=== PATIENT | female | born 1975 | race Caucasian/White ===

== ENCOUNTER → 2017-03-21 | Outpatient (REF) | payer OTHER | LOC: M LAB REF 14:46 | PROVIDERS: ATTEND Family Medicine | DX: Z12.4 Encounter for screening for malignant neoplasm of cervix (principal) ==

== ENCOUNTER 2018-10-29 01:27 | Emergency (ER) | payer OTHER ==
[~2018-10-29] VITALS: Ht 172.7 cm; Wt 100.0 kg
[2018-10-29] MEDS ORDERED: SYNT88TA2 PO (01:31)
[2018-10-29 02:40] VITALS: BP 130/70
== END 2018-10-29 02:45 | disposition home or self-care (01) ==
LOC: M ED 01:27
DX: J70.5 Respiratory conditions due to smoke inhalation (principal); E03.9 Hypothyroidism, unspecified; Z88.2 Allergy status to sulfonamides; Z79.899 Other long term (current) drug therapy

== ENCOUNTER → 2021-01-15 | Outpatient (CLI) | payer OTHER ==
[~2021-01-15] MED LIST: SYNT88TA2 PO
--- NOTE | 2021-01-17 06:57 | REP ---
INDICATION: PAIN. COMPARISON: None. TECHNIQUE: AP, lateral, bilateral oblique views of the right elbow. FINDINGS: Small corticated densities adjacent to the humeral condyles suggests elements of calcific tendinopathy. The radiohumeral and ulnohumeral joint spaces appear intact and normal. No further degenerative changes are identified. No evidence for acute or healed injury. No effusion. IMPRESSION: Mild calcific tendinopathy suspected. <Electronically signed by Kalen Ma > 01/17/21 [id number]
== END ==
LOC: M SOG 13:52
PROVIDERS: ATTEND Orthopaedic Surgery Sports Medicine
DX: M65.28 Calcific tendinitis, other site (principal)

== ENCOUNTER → 2022-02-25 | Outpatient (CLI) | payer OTHER | LOC: M SOG 08:15 | PROVIDERS: ATTEND Orthopaedic Surgery Hand Surgery | DX: M25.521 Pain in right elbow (principal) ==

== ENCOUNTER 2022-05-27 21:56 | Emergency (ER) | payer OTHER ==
[~2022-05-27] VITALS: Ht 172.7 cm; Wt 105.9 kg
[~2022-05-27 21:56] MED LIST changes: -KETO10TAB PO
[2022-05-28 01:40] LABS: BASO # 0.1 10^3/uL (0.0-0.2); BASO % 0.6 % (0.0-1.0); EOS # 0.3 10^3/uL (0.0-0.5); EOS % 3.2 % (0.0-3.0); HEMATOCRIT 40.9 % (36.0-47.0); HEMOGLOBIN 13.5 g/dl (12.0-15.5); LYMPH # 2.4 10^3/uL (1.5-5.0); LYMPH % 27.1 % (24.0-44.0); MEAN CORPUSCULAR HEMOGLOBIN 29.2 pg (27.0-33.0); MEAN CORPUSCULAR VOLUME 88.5 fl (80.0-96.0); MONO # 0.6 10^3/uL (0.0-0.8); MONO % 6.4 % (2.0-8.0); NEUTROPHILS # 5.4 10^3/uL (1.5-8.5); NEUTROPHILS % 62.2 % (36.0-66.0); PLATELET COUNT, AUTOMATED 236 10^3/uL (150-450); RED BLOOD COUNT 4.62 10^6/uL (4.00-5.40); WHITE BLOOD COUNT 8.7 10^3/uL (4.0-10.0)
[2022-05-28 02:10] LABS: HCG, SERUM QUALITATIVE NEGATIVE (NEGATIVE)
[2022-05-28 02:15] LABS: ALBUMIN 3.7 GM/DL (3.2-5.2); ALT/SGPT 26 U/L (12-78); BILIRUBIN,DIRECT < 0.1 MG/DL (0.0-0.2); BILIRUBIN,TOTAL 0.3 MG/DL (0.2-1.0); BLOOD UREA NITROGEN 14 MG/DL (7-18); CALCIUM LEVEL 9.1 MG/DL (8.5-10.1); CARBON DIOXIDE LEVEL 28 MEQ/L (21-32); CHLORIDE LEVEL 105 MEQ/L (98-107); CREATININE FOR GFR 0.76 MG/DL (0.55-1.30); GLOMERULAR FILTRATION RATE > 60.0 (>58); GLUCOSE, FASTING 107 MG/DL (70-100); LIPASE 107 U/L (73-393); POTASSIUM SERUM 4.6 MEQ/L (3.5-5.1); SODIUM LEVEL 138 MEQ/L (136-145); TOTAL PROTEIN 7.3 GM/DL (6.4-8.2)
[2022-05-28] MEDS ORDERED: ISOVUE-370 76% 100ML VIAL As Ordered ONE (04:56)
[2022-05-28 06:01] VITALS: BP 142/82
[2022-05-28] MEDS ORDERED: ONDANSETRON 4MG 2ML VIAL IV ONE (07:00)
[2022-05-28] MEDS ORDERED: KETOROLAC 30 MG/ML 1ML VIAL IV ONE (07:00)
[2022-05-28] MEDS ORDERED: KETO10TAB PO (10:10)
== END 2022-05-28 10:24 | disposition home or self-care (01) ==
LOC: M ED 21:56
DX: D25.9 Leiomyoma of uterus, unspecified (principal); R59.0 Localized enlarged lymph nodes; R93.89 Abnormal findings on diagnostic imaging of other specified body structures; E03.9 Hypothyroidism, unspecified; M51.36 Other intervertebral disc degeneration, lumbar region; K76.0 Fatty (change of) liver, not elsewhere classified; Z88.1 Allergy status to other antibiotic agents; Z88.2 Allergy status to sulfonamides
CPT/HCPCS: 74177; 76830; 76856; 80048; 80076; 81000; 81015; 83690; 84703; 85025; 87086; 93976; 96374; 99283; J1885; J2405; Q9967

== ENCOUNTER → 2022-05-27 | Outpatient (CLI) | payer OTHER ==
[~2022-05-27] MED LIST changes: +KETO10TAB PO
[2022-05-27 13:31] LABS: BASO # 0.1 10^3/uL (0.0-0.2); BASO % 0.7 % (0.0-1.0); EOS # 0.2 10^3/uL (0.0-0.5); EOS % 2.8 % (0.0-3.0); HEMOGLOBIN 12.9 g/dl (12.0-15.5); LYMPH # 1.6 10^3/uL (1.5-5.0); LYMPH % 22.6 % (24.0-44.0); MEAN CORPUSCULAR HEMOGLOBIN 29.5 pg (27.0-33.0); MEAN CORPUSCULAR HGB CONC 33.1 g/dl (32.0-36.5); MEAN CORPUSCULAR VOLUME 89.2 fl (80.0-96.0); MONO # 0.5 10^3/uL (0.0-0.8); MONO % 7.3 % (2.0-8.0); NEUTROPHILS # 4.8 10^3/uL (1.5-8.5); PLATELET COUNT, AUTOMATED 241 10^3/uL (150-450); RED BLOOD COUNT 4.37 10^6/uL (4.00-5.40); WHITE BLOOD COUNT 7.3 10^3/uL (4.0-10.0)
[2022-05-27 14:07] LABS: BLOOD UREA NITROGEN 15 MG/DL (7-18); CALCIUM LEVEL 9.2 MG/DL (8.5-10.1); CARBON DIOXIDE LEVEL 30 MEQ/L (21-32); CHLORIDE LEVEL 104 MEQ/L (98-107); CREATININE FOR GFR 0.78 MG/DL (0.55-1.30); GLOMERULAR FILTRATION RATE > 60.0 (>58); GLUCOSE, FASTING 85 MG/DL (70-100); SODIUM LEVEL 137 MEQ/L (136-145)
== END ==
LOC: M PLALAB 11:14
PROVIDERS: ATTEND Nurse Practitioner Family
DX: R10.30 Lower abdominal pain, unspecified (principal)

== ENCOUNTER → 2022-06-15 | Outpatient (REF) | payer OTHER ==
[~2022-06-15] MED LIST changes: +ACET-716 PO; +KETO10TAB PO
== END ==
LOC: M SFHCWAGY 13:01
PROVIDERS: ATTEND Obstetrics & Gynecology
DX: Z12.4 Encounter for screening for malignant neoplasm of cervix (principal); N93.9 Abnormal uterine and vaginal bleeding, unspecified; N76.0 Acute vaginitis
CPT/HCPCS: 87624; 88305; G0123

== ENCOUNTER → 2022-06-20 | Outpatient (CLI) | payer OTHER ==
[~2022-06-20] MED LIST changes: +LEVO112T2 PO
== END ==
LOC: M LABSMTC 11:46
PROVIDERS: ATTEND Anesthesiology
DX: Z01.818 Encounter for other preprocedural examination (principal); Z11.52 Encounter for screening for COVID-19

== ENCOUNTER 2022-06-23 06:05 | Day surgery (SDC) | payer OTHER ==
[~2022-06-23] VITALS: Ht 172.7 cm; Wt 102.1 kg
[2022-06-23] VITALS (7 sets, daily range): BP systolic 96–114; BP diastolic 52–84
[~2022-06-23 06:05] MED LIST changes: +ceFAZolin SOD 2 GM in IV 1 EA IV ONE
[2022-06-23] MEDS ORDERED: LR 1,000 ML IV SCH ×3 (06:55→11:00)
[2022-06-23 06:57] LABS: HEMATOCRIT 42.7 % (36.0-47.0); MEAN CORPUSCULAR HEMOGLOBIN 29.4 pg (27.0-33.0); MEAN CORPUSCULAR HGB CONC 32.8 g/dl (32.0-36.5); MEAN CORPUSCULAR VOLUME 89.5 fl (80.0-96.0); PLATELET COUNT, AUTOMATED 255 10^3/uL (150-450); RED BLOOD COUNT 4.77 10^6/uL (4.00-5.40); WHITE BLOOD COUNT 6.9 10^3/uL (4.0-10.0)
[2022-06-23] MEDS ORDERED: propofoL 200 MG/20 ML VIAL As Ordered ONE ×3 (07:01→10:20)
[2022-06-23] MEDS ORDERED: ROCURONIUM BROMIDE 50 MG/5 ML VIAL As Ordered ONE (07:01)
[2022-06-23] MEDS ORDERED: LIDOCAINE 2% 100MG/5ML SDV (FOR ANES.) As Ordered ONE ×2 (07:01→07:02)
[2022-06-23] MEDS ORDERED: dexameTHASONE 4 MG/ML 1ML VIAL (J1100 PER 1MG) As Ordered ONE (07:02)
[2022-06-23] MEDS ORDERED: MIDAZOLAM INJ 2MG/2ML VIAL (J2250 PER 1MG) As Ordered ONE (07:02)
[2022-06-23] MEDS ORDERED: ONDANSETRON 4MG 2ML VIAL As Ordered ONE (07:02)
[2022-06-23] MEDS ORDERED: fentaNYL 100 MCG/2 ML INJECTION As Ordered ONE ×2 (07:02→11:00)
[2022-06-23] MEDS ORDERED: BUPIVACAINE HCL 0.25% 30ML VIAL As Ordered ONE (07:09)
[2022-06-23] MEDS ORDERED: METHYLENE BLUE 0.5% (5MG/ML) 10 ML AMP (PROVAYBLUE) As Ordered ONE (07:09)
[2022-06-23 07:32] LABS: HCG, SERUM QUALITATIVE NEGATIVE (NEGATIVE)
[2022-06-23] MEDS ORDERED: LACRILUBE (AKWA TEARS) OPHTH OINT 3.5 GM As Ordered ONE (07:57)
[2022-06-23] MEDS ORDERED: VECURONIUM BROMIDE 10MG VIAL As Ordered ONE (08:35)
[2022-06-23] MEDS ORDERED: KETOROLAC 60MG 2ML VIAL As Ordered ONE (09:32)
[2022-06-23] MEDS ORDERED: ACETAMINOPHEN 1000MG 100ML IV BAG As Ordered ONE (09:32)
[2022-06-23] MEDS ORDERED: SUGAMMADEX SODIUM 500 MG/5 ML VIAL (BRIDION) As Ordered ONE (09:32)
[2022-06-23] MEDS ORDERED: oxyCODONE 5MG TAB PO PRN (10:45)
[2022-06-23] MEDS ORDERED: MORPHINE 2 MG/ML 1ML VIAL IV PRN (10:45)
[2022-06-23] MEDS ORDERED: fentaNYL 100 MCG/2 ML INJECTION IV PRN (10:45)
[2022-06-23] MEDS ORDERED: ONDANSETRON 4MG 2ML VIAL IV PRN ×2 (10:45→11:00)
[2022-06-23] MEDS ORDERED: KETOROLAC 30 MG/ML 1ML VIAL IV SCH (11:00)
[2022-06-23] MEDS ORDERED: MORPHINE 4 MG/ML 1ML VIAL/SYRINGE IV PRN (11:00)
[2022-06-23] MEDS ORDERED: PERCOCET 5MG/325MG TAB PO PRN ×2 (11:00)
[2022-06-23] MEDS: KETOROLAC 30 MG/ML 1ML VIAL IV SCH ×2 (16:50→22:57)
[2022-06-23] MEDS: DOCUSATE SODIUM 100MG CAPSULE PO SCH (20:08)
[2022-06-24 02:00] VITALS: BP 112/60
[2022-06-24] MEDS: KETOROLAC 30 MG/ML 1ML VIAL IV SCH (05:03)
[2022-06-24 06:00] VITALS: BP 114/58
[2022-06-24] MEDS: DOCUSATE SODIUM 100MG CAPSULE PO SCH (08:00)
[2022-06-24] MEDS ORDERED: IBUP80TA PO (09:37)
[2022-06-24] MEDS ORDERED: COLA100C5 PO (09:37)
[2022-06-24] MEDS ORDERED: PERCOCET PO (09:38)
[2022-06-24 09:58] VITALS: BP 125/65
[2022-06-24] MEDS ORDERED: IBUPROFEN 800 MG TAB PO SCH ×2 (13:00→19:00)
== END 2022-06-24 11:08 | disposition home or self-care (01) ==
LOC: M SDC 06:05 → M OBS 12:30 → UNDOADMIN 12:30 → UNDODISIN 06-24 11:08 → M SDC 06-24 11:08
PROVIDERS: ATTEND Obstetrics & Gynecology
DX: D25.9 Leiomyoma of uterus, unspecified (principal); R10.2 Pelvic and perineal pain; N83.201 Unspecified ovarian cyst, right side; N93.9 Abnormal uterine and vaginal bleeding, unspecified; E03.9 Hypothyroidism, unspecified; Z79.899 Other long term (current) drug therapy; Z79.890 Hormone replacement therapy
CPT/HCPCS: 36415; 58554; 58662; 84703; 85027; 86850; 86900; 86901; 88305; 88307; J0131; J0690; J1100; J1885; J2250; J2270; J2405; J3010; S2900

== ENCOUNTER → 2022-09-27 | Outpatient (CLI) | payer OTHER ==
[~2022-09-27] MED LIST changes: +COLA100C5 PO; +IBUP80TA PO; +PERCOCET PO; -ceFAZolin SOD 2 GM in IV 1 EA IV ONE
== END ==
LOC: M WHC 15:13
PROVIDERS: ATTEND Family Medicine
DX: Z12.31 Encounter for screening mammogram for malignant neoplasm of breast (principal)

== ENCOUNTER → 2022-10-18 | Outpatient (CLI) | payer OTHER ==
[2022-10-18 12:45] LABS: ALBUMIN 3.8 G/DL (3.2-5.2); ALKALINE PHOSPHATASE 59 U/L (46-116); ALT/SGPT 22 U/L (7.0-40); AST/SGOT 19 U/L (<34); BILIRUBIN,TOTAL 0.6 MG/DL (0.3-1.2); BLOOD UREA NITROGEN 18 MG/DL (9-23); CALCIUM LEVEL 9.4 MG/DL (8.5-10.1); CARBON DIOXIDE LEVEL 28 MMOL/L (20-31); CHLORIDE LEVEL 103 MMOL/L (98-107); CHOLESTEROL LEVEL 182 MG/DL (<200); CHOLESTEROL RISK RATIO 4.09 (<5); CREATININE FOR GFR 0.82 MG/DL (0.55-1.30); GLOMERULAR FILTRATION RATE > 60.0 (>58); GLUCOSE, FASTING 83 MG/DL (60-100); HDL CHOLESTEROL 44.4 MG/DL (>40); LDL CHOLESTEROL 113.2 MG/DL (<100); NON-HDL-C 138 MG/DL; POTASSIUM SERUM 4.2 MMOL/L (3.5-5.1); SODIUM LEVEL 137 MMOL/L (136-145); THYROID STIMULATING HORMONE 0.589 uIU/ML (0.55-4.78); TOTAL PROTEIN 6.8 G/DL (5.7-8.2); TRIGLYCERIDES LEVEL 122 MG/DL (<150)
== END ==
LOC: M PLALAB 08:46
PROVIDERS: ATTEND Nurse Practitioner Family
DX: E03.9 Hypothyroidism, unspecified (principal)

== ENCOUNTER → 2023-09-05 | Outpatient (REF) | payer OTHER | LOC: M LAB REF 17:13 | PROVIDERS: ATTEND Family Medicine | DX: N39.0 Urinary tract infection, site not specified (principal) ==

== ENCOUNTER → 2023-09-25 | Outpatient (CLI) | payer OTHER ==
[2023-09-25 11:55] LABS: BASO % 0.6 % (0.0-1.0); EOS # 0.2 10^3/uL (0.0-0.5); EOS % 2.8 % (0.0-3.0); HEMATOCRIT 41.5 % (36.0-47.0); LYMPH # 1.7 10^3/uL (1.5-5.0); MEAN CORPUSCULAR HEMOGLOBIN 30.6 pg (27.0-33.0); MEAN CORPUSCULAR HGB CONC 33.7 g/dl (32.0-36.5); MEAN CORPUSCULAR VOLUME 90.8 fl (80.0-96.0); MONO # 0.5 10^3/uL (0.0-0.8); MONO % 8.2 % (2.0-8.0); NEUTROPHILS # 3.9 10^3/uL (1.5-8.5); NEUTROPHILS % 60.9 % (36.0-66.0); PLATELET COUNT, AUTOMATED 199 10^3/uL (150-450); RED BLOOD COUNT 4.57 10^6/uL (4.00-5.40); WHITE BLOOD COUNT 6.3 10^3/uL (4.0-10.0)
[2023-09-25 12:25] LABS: FREE T4 1.31 NG/DL (0.89-1.76); THYROID STIMULATING HORMONE 1.995 uIU/ML (0.55-4.78)
[2023-09-25 12:26] LABS: ALBUMIN 3.6 G/DL (3.2-5.2); ALKALINE PHOSPHATASE 58 U/L (46-116); ALT/SGPT 22 U/L (7.0-40); AST/SGOT 11 U/L (<34); BILIRUBIN,TOTAL 0.3 MG/DL (0.3-1.2); BLOOD UREA NITROGEN 18 MG/DL (9-23); CARBON DIOXIDE LEVEL 26 MMOL/L (20-31); CHLORIDE LEVEL 109 MMOL/L (98-107); CHOLESTEROL LEVEL 177 MG/DL (<200); CHOLESTEROL RISK RATIO 3.84 (<5); CREATININE FOR GFR 0.77 MG/DL (0.55-1.30); GLOMERULAR FILTRATION RATE > 60.0 (>58); GLUCOSE, FASTING 98 MG/DL (60-100); LDL CHOLESTEROL 110.8 MG/DL (<100); POTASSIUM SERUM 4.5 MMOL/L (3.5-5.1); SODIUM LEVEL 141 MMOL/L (136-145); TOTAL PROTEIN 6.5 G/DL (5.7-8.2); TRIGLYCERIDES LEVEL 101 MG/DL (<150)
== END ==
LOC: M PLALAB 08:16
PROVIDERS: ATTEND Family Medicine
DX: Z00.00 Encounter for general adult medical examination without abnormal findings (principal); E03.9 Hypothyroidism, unspecified

== ENCOUNTER → 2023-09-25 | Outpatient (CLI) | payer OTHER | LOC: M WHC 07:04 | PROVIDERS: ATTEND Family Medicine | DX: R10.2 Pelvic and perineal pain (principal); Z90.710 Acquired absence of both cervix and uterus ==

== ENCOUNTER → 2023-10-03 | Outpatient (CLI) | payer OTHER ==
[~2023-10-03] MED LIST changes: +ISOVUE-370 76% 100ML VIAL ONE
== END ==
LOC: M PLAIMG 11:37
PROVIDERS: ATTEND Nurse Practitioner Family
DX: R10.2 Pelvic and perineal pain (principal)
CPT/HCPCS: 74178; Q9967

== ENCOUNTER → 2024-12-03 | Outpatient (CLI) | payer OTHER ==
[~2024-12-03] MED LIST changes: -ISOVUE-370 76% 100ML VIAL ONE
[2024-12-03 17:32] LABS: BASO # 0.1 10^3/uL (0.0-0.2); BASO % 0.9 % (0.0-1.0); EOS # 0.2 10^3/uL (0.0-0.5); HEMATOCRIT 43.6 % (36.0-47.0); HEMOGLOBIN 14.9 g/dl (12.0-15.5); LYMPH # 2.1 10^3/uL (1.5-5.0); LYMPH % 23.3 % (24.0-44.0); MEAN CORPUSCULAR HEMOGLOBIN 30.1 pg (27.0-33.0); MEAN CORPUSCULAR HGB CONC 34.2 g/dl (32.0-36.5); MEAN CORPUSCULAR VOLUME 88.1 fl (80.0-96.0); MONO # 0.7 10^3/uL (0.0-0.8); MONO % 7.3 % (2.0-8.0); NEUTROPHILS % 66.2 % (36.0-66.0); PLATELET COUNT, AUTOMATED 263 10^3/uL (150-450); RED BLOOD COUNT 4.95 10^6/uL (4.00-5.40)
[2024-12-03 17:58] LABS: ALBUMIN 4.1 G/DL (3.2-5.2); ALKALINE PHOSPHATASE 66 U/L (35-104); ALT/SGPT 23 U/L (7.0-40); AST/SGOT 16 U/L (<34); BILIRUBIN,TOTAL 0.3 MG/DL (0.3-1.2); BLOOD UREA NITROGEN 21 MG/DL (9-23); CALCIUM LEVEL 9.3 MG/DL (8.5-10.1); CARBON DIOXIDE LEVEL 28 MMOL/L (20-31); CHLORIDE LEVEL 103 MMOL/L (98-107); CHOLESTEROL LEVEL 202 MG/DL (<200); CHOLESTEROL RISK RATIO 3.63 (<5); CREATININE FOR GFR 0.76 MG/DL (0.55-1.30); GLOMERULAR FILTRATION RATE > 60.0 (>58); GLUCOSE, FASTING 80 MG/DL (60-100); HDL CHOLESTEROL 55.5 MG/DL (>40); LDL CHOLESTEROL 107.7 MG/DL (<100); NON-HDL-C 146.5 MG/DL; POTASSIUM SERUM 4.2 MMOL/L (3.5-5.1); SODIUM LEVEL 138 MMOL/L (136-145); TOTAL PROTEIN 7.5 G/DL (5.7-8.2); TRIGLYCERIDES LEVEL 194 MG/DL (<150)
[2024-12-03 18:01] LABS: FREE T4 1.24 NG/DL (0.89-1.76)
== END ==
LOC: M PLALAB 14:51
PROVIDERS: ATTEND Nurse Practitioner Family
DX: Z00.00 Encounter for general adult medical examination without abnormal findings (principal); E03.9 Hypothyroidism, unspecified